=== PATIENT | female | born 1930 | race Caucasian/White ===

== ENCOUNTER 2016-06-20 17:20 | Observation (INO) | payer MEDICARE, MEDICAID ==
[~2016-06-20 17:20] MED LIST: ADULT ASPIRIN81 MG; ADULT LOW DOSE81 MG; ALBUTEROL I0.5 ML/EA AERO NEB; ALLERCLEAR10 M1 PO; ALLERGY10 MG PO; ALOE VESTA56 GM TP; AMBIEN10 MG; AMITRIPTYLINE H25 M1 PO; AMITRIPTYLINE H25 MG; ANTACID M LIQU355 ML PO; ANTACID PO; ANTACID-ANTIGA355 ML PO; ARICEPT10 M2 PO; ARICEPT10 MG; ARICEPT10 MG PO; ARICEPT10 MG/TAB PO; ARICEPT5 MG; ASPIRIN BUFFER325 MG; ASPIRIN81 M1 PO; ASPIRIN81 MG; ASPIRIN81 MG PO; ATARAX50 MG PO; BABY ASPIRIN81 MG PO; BENEFIBER1 PKT PO; BENZONATATE100 MG PO; CALCIUM600 M1 PO; CALCIUM600 MG PO; CALTRATE 600 +1 EACH PO; CARBIDOPA-LEVO1 EAC9 PO; CARTIA XT180 MG; CIPRO250 M2 PO; CIPRO500 MG PO; CITRUCEL POWDE850 GM PO; CLARITIN10 M2 PO; COD LIVER OIL; COD LIVER OIL1 CAP; COUMADIN; COUMADIN1 MG; COUMADIN1 MG PO; COUMADIN2.5 MG; COUMADIN2.5 MG PO; COUMADIN3 MG; COUMADIN3 MG PO; COUMADIN4 M1 PO; COUMADIN4 MG; COUMADIN5 MG; COUMADIN5 MG PO; COUMADIN6 MG; DESYREL100 MG PO; DITROPAN XL5 MG; DITROPAN5 MG; DITROPAN5 MG PO; DOC-Q-LACE100 MG; DOC-Q-LACE100 MG PO; ELAVIL25 MG; ELAVIL75 MG; ELAVIL75 MG PO; FIBER170 GM PO; FOSAMAX5 MG; GABAPENTIN100 M1 PO; GARLIC; GARLIC1 CAP; GARLIC1000 MG; GENACOTE325 MG; HYDROCHLOROTHIA25 MG; HYDROCODON-ACE1 EAC7 PO; IMODIUM2 MG PO; LEVAQUIN250 MG PO; LEVAQUIN500 MG PO; LIDOCAINE HCL5 M1 TP; LIPITOR40 MG PO; LISINOPRIL10 M1 PO; LISINOPRIL10 MG; LISINOPRIL10 MG PO; LISINOPRIL5 MG; LOPERAMIDE2 M3 PO; MACROBID 100 M100 MG PO; MACROBID100 MG/CA1 PO; MACROBID100 MG/CAP PO; MAPAP325 M2 PO; METOPROLOL TART25 M1 PO; METOPROLOL TART25 MG; METOPROLOL TART25 MG PO; MILK OF MA400 MG/5 M PO; MIRALAX17 G1 PO; MULTIVITAMIN1 TAB; MYCOSTATIN15 GM TP; NAMENDA XR28 M1 PO; NAMENDA10 MG; NAMENDA10 MG PO; NEURONTIN100 M1 PO; NORCO 5-325 TA1 EACH PO; NORCO 5/325 TAB1 TAB PO; NORCO 5/3251 TA2 PO; NYSTAT-RX8 GM MC; NYSTATIN1 EA10 TP; OMEGA-31000 MG; OMEPRAZOLE20 M2 PO; OMEPRAZOLE20 M3 PO; OMEPRAZOLE20 MG PO; ONDANSETRON HCL4 M2 PO; PERCOCET 5-3251 EACH PO; PLAVIX75 MG; PRILOSEC; PRILOSEC20 MG; PROTONIX40 MG; PROTONIX40 MG PO; SENEXON-S TABL1 EAC1 PO; SENNA DOCUSATE PO; SENNA LAXATIVE25 MG; SENNA PLUS TAB1 EAC1 PO; SENNA-S TABLET1 EACH PO; SENNA8.6 M1 PO; SIMVASTATIN80 MG PO; SMZ TMP PO; SYSTANE 0.3-0.1 EACH EACH EYE; SYSTANE 0.3-0.4%1 EA OP; SYSTANE 0.3-0.415 ML EACH EYE; TESSALON PERLE100 M1 PO; TESSALON PERLE100 MG; TESSALON PERLE100 MG PO; TESSALON100 MG/CAP PO; TOLTERODINE TART2 M3 PO; TOPROL XL25 MG; TRAMADOL HCL50 M2 PO; TRAMADOL HCL50 MG PO; TUSSIONEX PENN473 ML PO; TYLENOL325 M2 PO; ULTRAM50 M1 PO; ULTRAM50 MG PO; VITAMIN B-1250 MCG; VITAMIN B-12500 MCG; VITAMIN B-500 MCG/TA PO; VITAMIN B12500 MCG PO; VITAMIN D1000 UNI1 PO; VITAMIN D1000 UNIT; VITAMIN D1000 UNIT PO; VITAMIN D31000 UNI4 PO; VITAMIN D31000 UNIT PO; VYTORIN; VYTORIN 10/40 T1 TAB; VYTORIN 10/80 T1 TAB; VYTORIN 10/80 T1 TAB PO; XANAX0.25 MG; ZETIA10 MG PO; ZITHROMAX250MG Z-PAK PO; ZOCOR40 MG; ZOCOR80 MG PO; ZOFRAN4 M2 PO; ZOFRAN4 MG PO; [UNRECOGNIZED DRUG - OTHER] MM; [UNRECOGNIZED DRUG - OTHER] PO; [UNRECOGNIZED DRUG - OTHER] TP; [UNRECOGNIZED DRUG - REMARK]
[2016-06-20] MEDS ORDERED: NYSTATIN1 EAC4 MC (17:55)
[2016-06-20] MEDS ORDERED: COUMADIN3 M1 PO (17:55)
[2016-06-20] MEDS ORDERED: BACITRACIN28.4 G2 TP (17:56)
[2016-06-20] MEDS ORDERED: COUGH DROPS1 EAC1 MM (17:57)
[2016-06-20] MEDS ORDERED: LIDOCAINE HCL5 M1 APL (17:57)
[2016-06-20] MEDS ORDERED: ICY HOT 16% POW49 GM TP (17:57)
[2016-06-20] MEDS ORDERED: NEURONTIN100 M1 PO (17:57)
[2016-06-20 18:21] LABS: BASO % 0.1 % (0-2); EOS % 2.5 % (0-7); EOSINOPHIL ABSOLUTE COUNT 0.2 tho/cmm (0.0-0.7); HCT-HEMATOCRIT 40.5 % (34.0-49.0); HGB-HEMOGLOBIN 12.9 gm/dl (12.0-15.5); IMMATURE GRANULOCYTES ABSOLUTE 0.01 tho/cmm (0-0.03); IMMATURE GRANULOCYTES PERCENT 0.1 % (0-0.3); LYMPH % 30.6 % (20-45); LYMPH ABSOLUTE COUNT 2.3 tho/cmm (0.8-4.5); MCH (MEAN CORPUSCULAR HGB) 27.9 pg (28.0-32.0); MCHC MEAN CORPUSCULAR HGB CONC 31.9 % (32.0-36.0); MCV (MEAN CELL VOLUME) 87.5 fl (82.0-96.0); MEAN PLATELET VOLUME 11.6 cmc (9.4-12.4); MONOCYTE ABSOLUTE COUNT 0.8 tho/cmm (0.0-1.2); NEUTROPHIL ABSOLUTE COUNT 4.3 tho/cmm (1.6-8.0); NEUTROPHIL-AUTOMATED 4.3 tho/cmm (1.6-8.0); NEUTROPHILS % 56.7 % (40-80); PLATELET COUNT 173 tho/cmm (150-450); RED BLOOD COUNT 4.63 mil/cmm (4.00-5.20); RED CELL DISTRIBUTION WIDTH 14.6 % (12.4-16.4); WHITE BLOOD COUNT 7.6 tho/cmm (4.0-10.0)
[2016-06-20 18:30] LABS: INR 2.6 INR (0.9-1.1)
[2016-06-20 18:36] LABS: ALB/GLOB RATIO 0.7 (0.8-2.0); ALBUMIN 3.2 g/dl (3.5-5.0); ALKALINE PHOSPHATASE 118 U/L (33-138); BILIRUBIN,TOTAL 0.3 mg/dl (0-1.5); BLOOD UREA NITROGEN 17 mg/dl (6-24); CALCIUM 8.4 mg/dl (8.5-10.5); CARBON DIOXIDE-VENOUS 28 mmol/L (22-32); CHLORIDE 107 mmol/l (96-110); CREATININE 1.11 mg/dl (0.50-1.10); GLUCOSE 137 mg/dL (70-110); SODIUM 142 mmol/L (135-145); eGFR VALUE FOR BLACK 52 mL/Min
[2016-06-20 18:37] LABS: ANION GAP 11 mmol/L (0-20)
[2016-06-20 18:38] LABS: ALT/SGPT <10 U/L (12-78); AST/SGOT 22 U/L (10-40); POTASSIUM 3.8 mmol/L (3.7-5.1)
[2016-06-20 18:40] LABS: TSH-THYROID STIMULATING HORM. 2.06 uIU/ml (0.40-3.80)
[2016-06-20 19:48] LABS: URINE BILIRUBIN NEGATIVE (NEG); URINE BLOOD MODERATE (NEG); URINE GLUCOSE (UA) NEGATIVE (NEG); URINE KETONE SMALL (NEG); URINE LEUKOCYTE ESTERASE POSITIVE (NEG); URINE NITRITE POSITIVE (NEG); URINE PH 6.5 (5.0-8.0); URINE PROTEIN SMALL (NEG); URINE SPECIFIC GRAVITY 1.015 (1.003-1.030)
[2016-06-20 19:51] LABS: URINE APPEARANCE CLOUDY; URINE COLOR YELLOW
[2016-06-20 19:53] LABS: URINE BACTERIA 4+
[2016-06-21 05:26] LABS: BASO % 0.1 % (0-2); EOS % 2.4 % (0-7); EOSINOPHIL ABSOLUTE COUNT 0.2 tho/cmm (0.0-0.7); HCT-HEMATOCRIT 38.7 % (34.0-49.0); HGB-HEMOGLOBIN 12.3 gm/dl (12.0-15.5); IMMATURE GRANULOCYTES ABSOLUTE 0.01 tho/cmm (0-0.03); IMMATURE GRANULOCYTES PERCENT 0.1 % (0-0.3); LYMPH % 27.1 % (20-45); LYMPH ABSOLUTE COUNT 1.9 tho/cmm (0.8-4.5); MCH (MEAN CORPUSCULAR HGB) 27.6 pg (28.0-32.0); MCHC MEAN CORPUSCULAR HGB CONC 31.8 % (32.0-36.0); MCV (MEAN CELL VOLUME) 86.8 fl (82.0-96.0); MONO % 9.3 % (0-12); MONOCYTE ABSOLUTE COUNT 0.7 tho/cmm (0.0-1.2); NEUTROPHIL ABSOLUTE COUNT 4.3 tho/cmm (1.6-8.0); NEUTROPHIL-AUTOMATED 4.3 tho/cmm (1.6-8.0); PLATELET COUNT 150 tho/cmm (150-450); RED BLOOD COUNT 4.46 mil/cmm (4.00-5.20); RED CELL DISTRIBUTION WIDTH 14.4 % (12.4-16.4)
[2016-06-21 05:30] LABS: INR 2.5 INR (0.9-1.1); PROTHROMBIN TIME 29.3 SECONDS (9.0-13.6)
[2016-06-21] MEDS ORDERED: VIBRAMYCIN100 M1 PO (12:47)
== END 2016-06-21 13:16 ==
LOC: EDMED 17:20 → EMR2 21:17 → CAR1 22:12
PROVIDERS: Emergency Medicine; ADMIT Internal Medicine
DX: R51 Headache (principal); N39.0 Urinary tract infection, site not specified; F03.90 Unspecified dementia, unspecified severity, without behavioral disturbance, psychotic disturbance, mood disturbance, and anxiety; I10 Essential (primary) hypertension; K21.9 Gastro-esophageal reflux disease without esophagitis; E78.5 Hyperlipidemia, unspecified; G47.33 Obstructive sleep apnea (adult) (pediatric); G20 Parkinson's disease; R73.9 Hyperglycemia, unspecified; I25.10 Atherosclerotic heart disease of native coronary artery without angina pectoris; R29.6 Repeated falls; Z66 Do not resuscitate; Z79.01 Long term (current) use of anticoagulants; Z79.82 Long term (current) use of aspirin; Z79.899 Other long term (current) drug therapy; Z88.8 Allergy status to other drugs, medicaments and biological substances; Z86.73 Personal history of transient ischemic attack (TIA), and cerebral infarction without residual deficits; Z86.718 Personal history of other venous thrombosis and embolism; Z87.11 Personal history of peptic ulcer disease; Z90.89 Acquired absence of other organs; Z90.710 Acquired absence of both cervix and uterus; Z96.641 Presence of right artificial hip joint; Z98.890 Other specified postprocedural states
CPT/HCPCS: G0378; G8978-GP-CJ; G8979-GP-CJ; G8980-GP-CJ; J0696; J1200; J2270; J2765; J7030; P9612